=== PATIENT | female | born 1995 | race American Indian/Alaskan Native ===

== ENCOUNTER 2016-10-21 16:05 | Emergency (ER) | payer BC, OTHER ==
--- NOTE | 2016-10-21 17:02 | Emergency Department Report ---
Entered by KEVON BLOUNT, acting as scribe for BRAD THAYER NP. Chief Complaint: Abdominal Pain Stated Complaint: ABD PAIN/DIARRHEA Time Seen by Provider: 10/21/16 16:26 - HPI History of Present Illness: 21 y/o female presents c/o 9/10, sharp abd pain that started earlier this morning. Sx include diarrhea and N/V but pt denies fever, vaginal discharge, hematuria, dysuria, increase in urination frequency. LMP 10/05/16 - ROS Review of Systems: +diarrhea +N +V -fever -vaginal discharge -hematuria -dysuria -increase in urination frequency - Exam Vital Signs: Vital Signs 10/21/16 16:53 Temperature 97.7 F Pulse Rate 66 Respiratory 17 Rate Blood Pressure 104/78 O2 Sat by Pulse 100 Oximetry Physical Exam: pt looks well, non toxic. pt with soft abd, non tender MSE screening note: Focused history and physical exam performed. Due to findings the following was ordered: labs ED Disposition for MSE Condition: Stable This documentation as recorded by the scribe,KEVON BLOUNT,accurately reflects the service I personally performed and the decisions made by ,BRAD THAYER , [place].
[2016-10-21 17:31] LABS: Hematocrit 37.2 % (30.3-42.9); Hemoglobin 12.4 gm/dl (10.1-14.3); Mean Corpuscular HGB Conc 34 % (30-34); Mean Corpuscular Hemoglobin 32 pg (28-32); Mean Corpuscular Volume 96 fl (79-97); Platelet Count 237 K/mm3 (140-440); Red Blood Count 3.89 M/mm3 (3.65-5.03); White Blood Count 9.1 K/mm3 (4.5-11.0)
[2016-10-21 17:46] LABS: Alanine Aminotransferase 10 units/L (7-56); Albumin 4.1 g/dL (3.9-5); Albumin/Globulin Ratio 1.1 %; Alkaline Phosphatase 69 units/L (35-129); Anion Gap 16 mmol/L; BUN/Creatinine Ratio 7.14; Bilirubin,Total 0.4 mg/dL (0.1-1.2); Blood Urea Nitrogen 5 mg/dL (7-17); Calcium 8.9 mg/dL (8.4-10.2); Carbon Dioxide 26 mmol/L (22-30); Chloride 98.3 mmol/L (98-107); Glucose 117 mg/dL (65-100); Lipase 22 units/L (13-60); Potassium 3.8 mmol/L (3.6-5.0); Sodium 136 mmol/L (137-145); Total Protein 7.9 g/dL (6.3-8.2)
[2016-10-21 18:36] LABS: Bilirubin,Urine NEG (Negative); Blood,Urine NEG (Negative); Ketones,Urine TR mg/dL (Negative); Leukocyte Esterase,Urine NEG (Negative); Mucus,Urine 3+ /HPF; Nitrite,Urine NEG (Negative); Urobilinogen,Urine < 2.0 mg/dL (<2.0)
[2016-10-21 19:08] LABS: Basophils % (Manual) 0 % (0.0-1.8); Blastocytes % (Manual) 0 %; Diff Status Complete; Eosinophils % (Manual) 0 % (0.0-4.3); Platelet Estimate Consistent w Auto; RBC Morphology Normal
[2016-10-21] MEDS ORDERED: ZOFRAN ODT ONE (23:27)
[2016-10-21] MEDS ORDERED: TYLENOL ONE (23:27)
[2016-10-21] MEDS: ZOFRAN ODT PO ONE (23:34)
[2016-10-21] MEDS: TYLENOL PO ONE (23:34)
--- NOTE | 2016-10-22 05:35 | Emergency Department Report ---
ED Abdominal Pain HPI - General Chief Complaint: Abdominal Pain Stated Complaint: ABD PAIN/DIARRHEA Time Seen by Provider: 10/21/16 16:26 Source: patient Mode of arrival: Ambulatory Limitations: No Limitations - History of Present Illness MD Complaint: abdominal pain -: Sudden Location: diffuse Radiation: none Migration to: no migration Severity: moderate Severity scale (0 -10): 8 Quality: stabbing, sharp Consistency: constant Improves With: nothing Worsens With: nothing Associated Symptoms: nausea, vomiting, diarrhea - Related Data LMP (females 10-50): this week Home Medications Medication Instructions Recorded Confirmed Last Taken Amoxicillin 500 mg PO TID 10/21/16 10/21/16 10/20/16 13:00 Previous Rx's Medication Instructions Recorded Last Taken Type Ondansetron [Zofran ODT TAB] 8 mg PO Q8HR PRN #12 tab.rapdis 10/22/16 Unknown Rx Allergies Allergy/AdvReac Type Severity Reaction Status Date / Time No Known Allergies Allergy Verified 10/21/16 16:52 ED Review of Systems ROS: Stated complaint: ABD PAIN/DIARRHEA Other details as noted in HPI Comment: All other systems reviewed and negative ED Past Medical Hx - Past Medical History Previous Medical History?: No - Surgical History Past Surgical History?: No - Social History Smoking Status: Never Smoker Substance Use Type: None - Medications Home Medications: Home Medications Medication Instructions Recorded Confirmed Last Taken Type Amoxicillin 500 mg PO TID 10/21/16 10/21/16 10/20/16 13:00 History Ondansetron [Zofran ODT TAB] 8 mg PO Q8HR PRN #12 tab.rapdis 10/22/16 Unknown Rx ED Physical Exam - General Limitations: No Limitations General appearance: alert, in no apparent distress - Head Head exam: Present: atraumatic, normocephalic - Eye Eye exam: Present: normal appearance - ENT ENT exam: Present: mucous membranes moist - Neck Neck exam: Present: normal inspection - Respiratory Respiratory exam: Present: normal lung sounds bilaterally. Absent: respiratory distress - Cardiovascular Cardiovascular Exam: Present: regular rate, normal rhythm. Absent: systolic murmur, diastolic murmur, rubs, gallop - GI/Abdominal GI/Abdominal exam: Present: soft, tenderness (mild diffuse), normal bowel sounds. Absent: distended, guarding, rebound, rigid - Extremities Exam Extremities exam: Present: normal inspection - Back Exam Back exam: Present: normal inspection - Neurological Exam Neurological exam: Present: alert, oriented X3 - Psychiatric Psychiatric exam: Present: normal affect, normal mood - Skin Skin exam: Present: warm, dry, intact, normal color. Absent: rash ED Course Vital Signs 10/21/16 10/22/16 10/22/16 16:53 00:34 06:20 Temperature 97.7 F 99.0 F Pulse Rate 66 58 L 71 Respiratory 17 12 17 Rate Blood Pressure 104/78 108/68 Blood Pressure 115/78 [Left] O2 Sat by Pulse 100 60 L 99 Oximetry ED Medical Decision Making - Lab Data Result diagrams: 10/21/16 17:17 10/21/16 17:17 Critical care attestation.: If time is entered above; I have spent that time in minutes in the direct care of this critically ill patient, excluding procedure time. ED Disposition Clinical Impression: Abdominal pain, Nausea & vomiting Disposition: DISCHARGED TO HOME OR SELFCARE Is pt being admited?: No Condition: Stable Instructions: Acute Nausea and Vomiting (ED), Abdominal Pain (ED) Prescriptions: Ondansetron [Zofran ODT TAB] 8 mg PO Q8HR PRN #12 tab.rapdis PRN Reason: nausea Referrals: PRIMARY CARE, [Primary Care Provider] - 3-5 Days Forms: Work/School Release Form(ED)
[2016-10-22 06:21] VITALS: BP 115/78
== END 2016-10-22 06:00 | disposition home or self-care (01) ==
LOC: ED 16:05
DX: R10.9 Unspecified abdominal pain (principal); R11.2 Nausea with vomiting, unspecified
CPT/HCPCS: 36415; 80053; 81001; 81025; 83690; 85007; 85025; 99283; Q0162